=== PATIENT | male | born 1955 | race Caucasian/White ===

== ENCOUNTER → 2017-01-28 | Outpatient (CLI) | payer BC | LOC: HEART CORB 09:02 | DX: I48.91 Unspecified atrial fibrillation (principal); I10 Essential (primary) hypertension; R00.2 Palpitations; I48.0 Paroxysmal atrial fibrillation | CPT/HCPCS: 93306 ==

== ENCOUNTER → 2020-11-23 | Outpatient (CLI) | payer MEDICARE, OTHER ==
[~2020-11-23] MED LIST: AUGMENTIN 875-1 EACH PO; CIPRO500 MG PO; COLACE100 MG PO; FINASTERIDE5 MG PO; FLECAINIDE ACE100 MG PO; FLECAINIDE ACET50 MG PO; IBUPROFEN600 MG PO; LOPRESSOR 50 MG50 MG PO; LOPRESSOR50 MG PO; METRONIDAZOLE500 MG PO; PANTOPRAZOLE SO40 MG PO; PROTONIX40 MG PO; SULFAMETHOXAZO1 EACH PO; TAMSULOSIN HCL0.4 MG PO; XARELTO20 MG PO
== END ==
LOC: RAD 07:43
DX: K57.92 Diverticulitis of intestine, part unspecified, without perforation or abscess without bleeding (principal); K57.30 Diverticulosis of large intestine without perforation or abscess without bleeding
CPT/HCPCS: 74270

== ENCOUNTER 2021-01-20 13:42 | Emergency (ER) | payer MEDICARE, OTHER ==
[~2021-01-20 13:42] MED LIST changes: -AUGMENTIN 875-1 EACH PO
[2021-01-20 15:23] LABS: HEMOGLOBIN 14.4 gm/dl (14.0-17.5); RED BLOOD COUNT 4.71 M/UL (4.20-5.50); WHITE BLOOD COUNT 6.7 K/UL (4.5-11.0)
[2021-01-20] MEDS ORDERED: AUGMENTIN 875-1 EACH PO (17:27)
== END 2021-01-20 17:45 | disposition home or self-care (01) ==
LOC: ER1 13:42
PROVIDERS: Physician Assistant
DX: K57.32 Diverticulitis of large intestine without perforation or abscess without bleeding (principal); I48.91 Unspecified atrial fibrillation; I10 Essential (primary) hypertension
CPT/HCPCS: 80053; 81001; 85025; 96374; 96375; 99284; J2270; J2405; J7030; Q9967

== ENCOUNTER 2021-08-09 15:22 | Emergency (ER) | payer OTHER ==
[~2021-08-09 15:22] MED LIST changes: +AUGMENTIN 875-1 EACH PO
== END 2021-08-09 17:12 | disposition home or self-care (01) ==
LOC: ER1 15:22
DX: M23.92 Unspecified internal derangement of left knee (principal); I10 Essential (primary) hypertension; I48.91 Unspecified atrial fibrillation; Z79.899 Other long term (current) drug therapy
CPT/HCPCS: 73562; 99283

== ENCOUNTER → 2021-08-16 | Outpatient (CLI) | payer OTHER | LOC: KOH-I 15:52 | DX: S83.242A Other tear of medial meniscus, current injury, left knee, initial encounter (principal) | CPT/HCPCS: 73721 ==

== ENCOUNTER 2021-08-18 10:36 | Emergency (ER) | payer OTHER ==
[2021-08-18 11:11] LABS: HEMOGLOBIN 14.7 gm/dl (14.0-17.5); RED BLOOD COUNT 4.61 M/UL (4.20-5.50)
== END 2021-08-18 12:06 | disposition home or self-care (01) ==
LOC: ER1 10:36
PROVIDERS: Family Medicine
DX: R31.9 Hematuria, unspecified (principal); R10.9 Unspecified abdominal pain; I48.91 Unspecified atrial fibrillation; Z79.01 Long term (current) use of anticoagulants
CPT/HCPCS: 80053; 81001; 83690; 85025; 99284